=== PATIENT | female | born 1950 | race Caucasian/White ===

== ENCOUNTER 2016-09-14 20:34 | Emergency (ER) | payer BC ==
[~2016-09-14] VITALS: Ht 160 cm; Wt 95.7 kg
[2016-09-14 20:49] VITALS: BP 121/66; PULSE 68; RESP 14; TEMP 98.2; O2SAT 96
== END 2016-09-14 21:32 | disposition left against medical advice (07) ==
LOC: PHED 20:34
DX: T15.92XA Foreign body on external eye, part unspecified, left eye, initial encounter (principal); X58.XXXA Exposure to other specified factors, initial encounter